=== PATIENT | female | born 1950 | race Caucasian/White ===

== ENCOUNTER 2024-11-20 17:20 | Inpatient (IN) | payer MEDICARE, OTHER ==
[~2024-11-20] VITALS: Ht 160 cm; Wt 53.6 kg
[2024-11-20 19:28] LABS: BASOPHILS % (AUTO) 0.3 % (0.0-2.0); EOSINOPHILS % (AUTO) 2.5 % (1.0-6.0); HEMATOCRIT 41.4 % (36-46); HEMOGLOBIN 13.8 g/dL (12.0-16.0); LYMPHOCYTES # (AUTO) 3.2 K/uL (1.0-4.8); LYMPHOCYTES % (AUTO) 34.6 % (22.0-44.0); MEAN CORPUSCULAR HEMOGLOBIN 29.8 pg (26.0-34.0); MEAN CORPUSCULAR HGB CONC 33.2 G/dL (31.0-37.0); MEAN CORPUSCULAR VOLUME 90 fL (80-100); MONOCYTES # (AUTO) 0.6 K/uL (0.1-1.0); MONOCYTES % (AUTO) 6.4 % (2.0-9.0); NEUTROPHILS # (AUTO) 5.2 K/uL (1.8-7.7); NEUTROPHILS % (AUTO) 56.2 % (40.0-70.0); PLATELET COUNT (AUTO) 288 K/uL (150-450); RED BLOOD CELL COUNT(AUTO) 4.62 MIL/uL (4.00-5.20); WHITE BLOOD COUNT (AUTO) 9.2 K/uL (4.5-11.0)
[2024-11-20 19:29] LABS: ANION GAP 8 mmol/L (8-16); CALCIUM, TOTAL 8.8 mg/dL (8.8-10.5); CARBON DIOXIDE 29 mmol/L (22-29); CHLORIDE 108 mmol/L (98-107); GLOMERULAR FILTR. RATE CALC > 60 mL/min (>60); GLUCOSE,RANDOM 111 mg/dL (70-110); POTASSIUM 4.3 mmol/L (3.5-5.1); SODIUM SERUM 145 mmol/L (136-145); UREA NITROGEN, BLOOD 20 mg/dL (7-18)
[2024-11-20 19:38] LABS: ALCOHOL, BLOOD (SERUM) < 3 mg/dL (0-10)
[2024-11-20] MEDS: LORazepam 2 MG/ML VIAL IM ONE (19:44)
[2024-11-20] MEDS: ZIPRASIDONE MESYLATE 20 MG/VIAL IM ONE (19:44)
[2024-11-20 20:03] LABS: COVID AG,FIA SOURCE NASAL SWAB
[2024-11-20 20:24] LABS: SARS-COV2 (COVID) ANTIGEN,FIA Negative (Negative)
[2024-11-20] MEDS ORDERED: GABA-1181 PO (20:27)
[2024-11-20] MEDS ORDERED: HYDR-4062 PO (20:27)
[2024-11-20] MEDS ORDERED: BUSP15 PO (20:27)
[2024-11-20] MEDS ORDERED: CELE200 PO (20:27)
[2024-11-20] MEDS ORDERED: ASPI-1450 PO (20:27)
[2024-11-20] MEDS ORDERED: ATOR10TA PO (20:27)
[2024-11-20] MEDS ORDERED: MELA5TAB21 PO (20:27)
[2024-11-20] MEDS ORDERED: FENO50CA4 PO (20:27)
[2024-11-20] MEDS ORDERED: ONDA-104 PO (20:27)
[2024-11-20] MEDS ORDERED: AMLO-257 PO (20:27)
[2024-11-20] MEDS ORDERED: TUBE5VIA ID (20:27)
[2024-11-20] MEDS ORDERED: LEVO50TA11 PO (20:27)
[2024-11-20] MEDS ORDERED: MIRT-93 PO (20:27)
[2024-11-20] MEDS ORDERED: ACET-2247 PO (20:27)
[2024-11-20] MEDS ORDERED: CLOP75TA60 PO (20:27)
[2024-11-20] MEDS ORDERED: INSLAN SQ ×2 (20:27)
[2024-11-20 21:16] LABS: APPEARANCE,URINE CLEAR (CLEAR); BILIRUBIN,URINE NEGATIVE (NEGATIVE); COLOR,URINE LIGHT YELLOW (YELLOW); GLUCOSE, URINE (UA) NEGATIVE (NEGATIVE); KETONES,URINE NEGATIVE (NEGATIVE); LEUKOCYTE ESTERASE ,URINE SMALL (NEGATIVE); NITRATE,URINE POSITIVE (NEGATIVE); OCCULT BLOOD,URINE NEGATIVE (NEGATIVE); PROTEIN,URINE NEGATIVE (NEGATIVE); SPECIFIC GRAVITIY, URINE 1.015 (1.003-1.030); UROBILINOGEN,URINE <=1.0 mg/dL (<=1.0)
[2024-11-20 21:24] LABS: ALCOHOL, URINE DRUG SCREEN NEGATIVE (NEGATIVE); AMPHET/METH SCREEN,URINE NEGATIVE (NEGATIVE); BARBITURATE SCREEN, URINE NEGATIVE (NEGATIVE); BENZODIAZEPINES SCREEN,URINE NEGATIVE (NEGATIVE); CANNABINOID SCREEN,URINE NEGATIVE (NEGATIVE); COCAINE SCREEN,URINE NEGATIVE (NEGATIVE); METHADONE SCREEN, URINE NEGATIVE (NEGATIVE); OPIATE SCREEN,URINE NEGATIVE (NEGATIVE); PHENCYCLIDINE SCREEN,URINE NEGATIVE (NEGATIVE)
[2024-11-20 21:37] LABS: BACTERIA,URINE Many /HPF (None Seen); RBC,URINE 0-2 /HPF (0-2); SQUAMOUS EPITHELIAL CELL,UR Few /LPF (None Seen)
[2024-11-21] MEDS: LORazepam 2 MG TABLET PO PRN (07:54)
[2024-11-21] MEDS: ZOLPIDEM TARTRATE 10 MG TABLET PO PRN (18:36)
[2024-11-21] MEDS: CefTRIAXone SODIUM 1 GM/VIAL IM ONE (22:45)
[2024-11-21] MEDS: LIDOCAINE/PF 1% 2 ML VIAL IM ONE (22:45)
[2024-11-22 08:26] LABS: GLUCOMETER DEV NAME(LOC) ER.7; GLUCOSE,POINT OF CARE 105 MG/DL (70-110)
[2024-11-22] MEDS: OLANZapine 5 MG RAPDIS TABLET PO PRN (08:36)
[2024-11-23] MEDS ORDERED: FENO67CA16 PO (13:54)
[2024-11-23] MEDS ORDERED: INSU100V42 SQ (13:54)
[2024-11-23] MEDS ORDERED: ALEN10TA27 PO (13:54)
[2024-11-23] MEDS ORDERED: INSU100V51 SQ (13:54)
[2024-11-23] MEDS: CefTRIAXone SODIUM 1 GM/VIAL IM ONE (14:24)
[2024-11-23] MEDS: LIDOCAINE/PF 1% 2 ML VIAL IM ONE (14:25)
[2024-11-23 14:32] VITALS: O2SAT 96
[2024-11-23 15:22] VITALS: BP 128/62; PULSE 99; RESP 18; TEMP 96.9; O2SAT 97
[2024-11-23] MEDS ORDERED: DEXTROSE 50%-WATER 25 GM/50 ML SYRINGE IVP PRN (16:30)
[2024-11-23] MEDS: CEPHALEXIN MONOHYDRATE 250 MG CAPSULE PO SCH (17:08)
[2024-11-23] MEDS: BusPIRone HCL 15 MG TABLET PO SCH (17:08)
[2024-11-23] MEDS: INSULIN LISPRO 100 UNITS/ML SQ PRN (18:18)
[2024-11-23 20:56] LABS: GLUCOMETER DEV NAME(LOC) 3E.C; GLUCOSE,POINT OF CARE 115 MG/DL (70-110)
[2024-11-23] MEDS: MELATONIN 5 MG TABLET PO SCH (21:21)
[2024-11-23] MEDS: MIRTAZAPINE 30 MG TABLET PO SCH (21:21)
[2024-11-23 22:06] VITALS: BP 108/54; PULSE 78; RESP 17; TEMP 98.2; O2SAT 94
[2024-11-24 06:56] LABS: GLUCOMETER DEV NAME(LOC) 3E.C; GLUCOSE,POINT OF CARE 93 MG/DL (70-110)
[2024-11-24] MEDS: ALENDRONATE SODIUM 10 MG TABLET PO SCH (07:03)
[2024-11-24] MEDS: LEVOTHYROXINE SODIUM 50 MCG TABLET PO SCH (07:03)
[2024-11-24] MEDS: CLOPIDOGREL BISULFATE 75 MG TABLET PO SCH (09:25)
[2024-11-24] MEDS: AmLODIPine BESYLATE 5 MG TABLET PO SCH (09:25)
[2024-11-24] MEDS: ASPIRIN 81 MG CHEWABLE TABLET PO SCH (09:26)
[2024-11-24] MEDS: FENOFIBRATE,MICRONIZED 67 MG CAPSULE PO SCH (09:26)
[2024-11-24 09:29] VITALS: BP 101/50; PULSE 98; RESP 18; TEMP 98; O2SAT 97
[2024-11-24] MEDS: INSULIN GLARGINE,HUM.REC.ANLOG 100 UNITS/ML SQ SCH (09:53)
[2024-11-24 11:46] LABS: GLUCOMETER DEV NAME(LOC) 3E.C; GLUCOSE,POINT OF CARE 135 MG/DL (70-110)
[2024-11-24 17:15] LABS: GLUCOMETER DEV NAME(LOC) 3E.C; GLUCOSE,POINT OF CARE 246 MG/DL (70-110)
[2024-11-24 20:10] VITALS: BP 105/62; PULSE 74; RESP 18; TEMP 98.1; O2SAT 98
[2024-11-24 20:56] LABS: GLUCOMETER DEV NAME(LOC) 3E.C; GLUCOSE,POINT OF CARE 145 MG/DL (70-110)
[2024-11-25 06:31] LABS: GLUCOMETER DEV NAME(LOC) 3E.C; GLUCOSE,POINT OF CARE 93 MG/DL (70-110)
[2024-11-25] MEDS ORDERED: LOPERAMIDE HCL 2 MG CAPSULE PO PRN (09:00)
[2024-11-25] MEDS ORDERED: CloNIDine HCL 0.1 MG TABLET PO PRN (09:00)
[2024-11-25] MEDS ORDERED: DOCUSATE SODIUM 100 MG CAPSULE PO PRN (09:00)
[2024-11-25] MEDS ORDERED: GuaiFENesin/D-METHORPHAN [SUGAR-FREE] 200-20MG/10 ML SYRUP UDCUP PO PRN (09:00)
[2024-11-25] MEDS ORDERED: MAGNESIUM HYDROXIDE SUSPENSION 30 ML UDCUP PO PRN (09:00)
[2024-11-25] MEDS ORDERED: NICOTINE 14 MG/24 HOUR PATCH TD PRN (09:00)
[2024-11-25] MEDS ORDERED: IBUPROFEN 400 MG TABLET PO PRN (09:00)
[2024-11-25] MEDS ORDERED: ACETAMINOPHEN 325 MG TABLET PO PRN (09:00)
[2024-11-25] MEDS ORDERED: ONDANSETRON 4 MG TABLET PO PRN (09:00)
[2024-11-25] MEDS ORDERED: MAG HYDROX/ALUMINUM HYD/SIMETH ES 30 ML SUSPENSION UDCUP PO PRN (09:00)
[2024-11-25] MEDS ORDERED: ALBUTEROL SULFATE HFA 90 MCG/PUFF 8 GM INHALER IH PRN (09:00)
[2024-11-25] MEDS ORDERED: PETROLATUM,WHITE 28 GM JELLY TP PRN (09:00)
[2024-11-25 11:40] LABS: GLUCOMETER DEV NAME(LOC) 3E.C; GLUCOSE,POINT OF CARE 99 MG/DL (70-110)
[2024-11-25] MEDS ORDERED: MELA5TAB40 PO (15:11)
[2024-11-25] MEDS ORDERED: CEPH-556 PO (15:11)
[2024-11-25 16:11] VITALS: BP 126/62; PULSE 86; RESP 17; TEMP 98.9; O2SAT 95
[2024-11-25 17:46] LABS: GLUCOMETER DEV NAME(LOC) 3E.C; GLUCOSE,POINT OF CARE 192 MG/DL (70-110)
== END 2024-11-25 18:47 | DRG 885 ==
LOC: EMS 17:24 → 3EI 11-23 10:34
PROVIDERS: ADMIT Psychiatry & Neurology Child & Adolescent Psychiatry; ATTEND Psychiatry & Neurology Child & Adolescent Psychiatry
PROC: GZ56ZZZ Individual Psychotherapy, Supportive (ICD-10-PCS; principal; 2024-11-24)
DX: F20.9 Schizophrenia, unspecified (principal); N39.0 Urinary tract infection, site not specified; F01.53 Vascular dementia, unspecified severity, with mood disturbance; G81.94 Hemiplegia, unspecified affecting left nondominant side; E11.9 Type 2 diabetes mellitus without complications; I10 Essential (primary) hypertension; M81.0 Age-related osteoporosis without current pathological fracture; Z20.822 Contact with and (suspected) exposure to COVID-19; E03.9 Hypothyroidism, unspecified; E78.00 Pure hypercholesterolemia, unspecified; J44.89 Other specified chronic obstructive pulmonary disease; Z78.1 Physical restraint status; Z79.4 Long term (current) use of insulin; Z86.73 Personal history of transient ischemic attack (TIA), and cerebral infarction without residual deficits; F32.9 Major depressive disorder, single episode, unspecified
CPT/HCPCS: 80048; 80307; 81001; 82962; 85025; 87077; 87081; 87086; 87186; 96372; 99291; G0480; J0696; J1815; J2060; J3486; J3490

== ENCOUNTER 2024-12-06 14:13 | Inpatient (IN) | payer MEDICARE, OTHER ==
[~2024-12-06] VITALS: Ht 147.3 cm; Wt 63.6 kg
[~2024-12-06 14:13] MED LIST: ALEN10TA27 PO; AMLO-257 PO; ASPI-1450 PO; BUSP15 PO; CELE200 PO; CEPH-556 PO; CLOP75TA60 PO; FENO67CA16 PO; INSLAN SQ; LEVO50TA11 PO; MELA5TAB40 PO; MIRT-93 PO
[2024-12-06] MEDS ORDERED: ZOLPIDEM TARTRATE 10 MG TABLET PO PRN (15:15)
[2024-12-06] MEDS ORDERED: LORazepam 2 MG TABLET PO PRN (15:15)
[2024-12-06] MEDS: DiphenhydrAMINE HCL 50 MG/ML VIAL IM ONE (15:26)
[2024-12-06] MEDS: ZIPRASIDONE MESYLATE 20 MG/VIAL IM ONE (15:26)
[2024-12-06] MEDS: LORazepam 2 MG/ML VIAL IM ONE (15:26)
[2024-12-06] MEDS ORDERED: ZOLPIDEM TARTRATE 5 MG TABLET PO PRN (15:26)
[2024-12-06 17:33] LABS: COVID AG,FIA SOURCE NASAL SWAB
[2024-12-06 17:56] LABS: SARS-COV2 (COVID) ANTIGEN,FIA Negative (Negative)
[2024-12-06 18:13] LABS: BASOPHILS % (AUTO) 0.2 % (0.0-2.0); EOSINOPHILS % (AUTO) 0.5 % (1.0-6.0); HEMATOCRIT 37.2 % (36-46); HEMOGLOBIN 12.3 g/dL (12.0-16.0); LYMPHOCYTES # (AUTO) 2.2 K/uL (1.0-4.8); MEAN CORPUSCULAR HEMOGLOBIN 29.5 pg (26.0-34.0); MEAN CORPUSCULAR VOLUME 89 fL (80-100); MONOCYTES # (AUTO) 0.9 K/uL (0.1-1.0); MONOCYTES % (AUTO) 4.7 % (2.0-9.0); NEUTROPHILS # (AUTO) 16.7 K/uL (1.8-7.7); NEUTROPHILS % (AUTO) 83.6 % (40.0-70.0); PLATELET COUNT (AUTO) 307 K/uL (150-450); RED BLOOD CELL COUNT(AUTO) 4.16 MIL/uL (4.00-5.20); WHITE BLOOD COUNT (AUTO) 19.9 K/uL (4.5-11.0)
[2024-12-06 18:21] LABS: ANION GAP 7 mmol/L (8-16); CALCIUM, TOTAL 8.4 mg/dL (8.8-10.5); CARBON DIOXIDE 27 mmol/L (22-29); CHLORIDE 111 mmol/L (98-107); GLOMERULAR FILTR. RATE CALC > 60 mL/min (>60); GLUCOSE,RANDOM 77 mg/dL (70-110); POTASSIUM 3.1 mmol/L (3.5-5.1); SODIUM SERUM 145 mmol/L (136-145); UREA NITROGEN, BLOOD 30 mg/dL (7-18)
[2024-12-06 18:27] LABS: ALBUMIN 2.8 g/dL (3.4-5.0); BILIRUBIN,DIRECT 0.2 mg/dL (0.00-0.20); BILIRUBIN,TOTAL 0.5 mg/dL (0.1-1.0); TOTAL PROTEIN, SERUM 6.1 g/dL (6.4-8.2)
[2024-12-06 18:54] LABS: ALCOHOL, BLOOD (SERUM) < 3 mg/dL (0-10)
[2024-12-06 19:33] LABS: APPEARANCE,URINE CLEAR (CLEAR); BILIRUBIN,URINE NEGATIVE (NEGATIVE); COLOR,URINE YELLOW (YELLOW); GLUCOSE, URINE (UA) NEGATIVE (NEGATIVE); KETONES,URINE NEGATIVE (NEGATIVE); LEUKOCYTE ESTERASE ,URINE LARGE (NEGATIVE); NITRATE,URINE POSITIVE (NEGATIVE); OCCULT BLOOD,URINE NEGATIVE (NEGATIVE); PH,URINE 5.5 (5.0-8.0); PH,URINE DRUG SCREEN 5.5 (5.0-8.0); PROTEIN,URINE TRACE mg/dL (NEGATIVE); SPECIFIC GRAVITIY, URINE 1.023 (1.003-1.030); UROBILINOGEN,URINE <=1.0 mg/dL (<=1.0)
[2024-12-06] MEDS: POTASSIUM CHLORIDE 20 MEQ ER TABLET PO ONE (19:39)
[2024-12-06 19:40] LABS: ALCOHOL, URINE DRUG SCREEN NEGATIVE (NEGATIVE); AMPHET/METH SCREEN,URINE NEGATIVE (NEGATIVE); BARBITURATE SCREEN, URINE NEGATIVE (NEGATIVE); BENZODIAZEPINES SCREEN,URINE NEGATIVE (NEGATIVE); CANNABINOID SCREEN,URINE NEGATIVE (NEGATIVE); COCAINE SCREEN,URINE NEGATIVE (NEGATIVE); METHADONE SCREEN, URINE NEGATIVE (NEGATIVE); OPIATE SCREEN,URINE NEGATIVE (NEGATIVE); PHENCYCLIDINE SCREEN,URINE NEGATIVE (NEGATIVE)
[2024-12-06 19:43] LABS: BACTERIA,URINE Moderate /HPF (None Seen); RBC,URINE 0-2 /HPF (0-2); SQUAMOUS EPITHELIAL CELL,UR Few /LPF (None Seen)
[2024-12-06] MEDS: LIDOCAINE/PF 1% 2 ML VIAL IM ONE (21:54)
[2024-12-06] MEDS: CefTRIAXone SODIUM 1 GM/VIAL IM ONE (21:54)
[2024-12-07] MEDS: LORazepam 2 MG/ML VIAL IM ONE (06:33)
[2024-12-07 06:58] LABS: HEMOGLOBIN A1C 6.3 % (3.8-5.6)
[2024-12-07 07:06] LABS: CHOL/HDL RATIO 1.9 (3.9-5.7)
[2024-12-07] MEDS: LORazepam 1 MG TABLET PO PRN (09:11)
[2024-12-07 16:06] LABS: BASOPHILS % (AUTO) 0.3 % (0.0-2.0); EOSINOPHILS % (AUTO) 1.8 % (1.0-6.0); HEMOGLOBIN 13.5 g/dL (12.0-16.0); LYMPHOCYTES # (AUTO) 1.9 K/uL (1.0-4.8); MEAN CORPUSCULAR HEMOGLOBIN 29.8 pg (26.0-34.0); MEAN CORPUSCULAR VOLUME 90 fL (80-100); MONOCYTES # (AUTO) 0.7 K/uL (0.1-1.0); MONOCYTES % (AUTO) 5.1 % (2.0-9.0); NEUTROPHILS # (AUTO) 10.8 K/uL (1.8-7.7); NEUTROPHILS % (AUTO) 78.8 % (40.0-70.0); PLATELET COUNT (AUTO) 329 K/uL (150-450); RED BLOOD CELL COUNT(AUTO) 4.55 MIL/uL (4.00-5.20); WHITE BLOOD COUNT (AUTO) 13.6 K/uL (4.5-11.0)
[2024-12-07] MEDS: QUEtiapine FUMARATE 100 MG TABLET PO PRN (16:06)
[2024-12-07 16:14] LABS: ANION GAP 7 mmol/L (8-16); CALCIUM, TOTAL 8.8 mg/dL (8.8-10.5); CARBON DIOXIDE 28 mmol/L (22-29); CHLORIDE 111 mmol/L (98-107); CREATININE 0.67 mg/dL (0.60-1.30); GLOMERULAR FILTR. RATE CALC > 60 mL/min (>60); GLUCOSE,RANDOM 78 mg/dL (70-110); POTASSIUM 4.1 mmol/L (3.5-5.1); SODIUM SERUM 146 mmol/L (136-145); UREA NITROGEN, BLOOD 24 mg/dL (7-18)
[2024-12-08] MEDS: LIDOCAINE/PF 1% 2 ML VIAL IM ONE (04:09)
[2024-12-08] MEDS: CefTRIAXone SODIUM 1 GM/VIAL IM ONE (04:09)
[2024-12-08] MEDS: BusPIRone HCL 15 MG TABLET PO ONE (08:17)
[2024-12-08] MEDS: MIRTAZAPINE 30 MG TABLET PO ONE (08:17)
[2024-12-08] MEDS: CLOPIDOGREL BISULFATE 75 MG TABLET PO ONE (08:18)
[2024-12-08] MEDS: GABAPENTIN 300 MG CAPSULE PO ONE (08:18)
[2024-12-08] MEDS: ASPIRIN 81 MG CHEWABLE TABLET PO ONE (08:18)
[2024-12-08 09:26] LABS: GLUCOMETER DEV NAME(LOC) ER.7; GLUCOSE,POINT OF CARE 80 MG/DL (70-110)
[2024-12-08] MEDS: DEXTROSE 5%-WATER 500 ML IV ONE (16:45)
[2024-12-08 19:22] VITALS: BP 133/61; PULSE 87; RESP 20; TEMP 97.9; O2SAT 97
[2024-12-08] MEDS ORDERED: MIRTAZAPINE 30 MG TABLET PO ONE (21:00)
[2024-12-08] MEDS: MIRTAZAPINE 30 MG TABLET PO SCH (21:00)
[2024-12-08] MEDS: MELATONIN 5 MG TABLET PO SCH (21:00)
[2024-12-08] MEDS: BusPIRone HCL 15 MG TABLET PO SCH (21:00)
[2024-12-09 05:30] VITALS: BP 122/60; PULSE 82; RESP 18; TEMP 98.3; O2SAT 97
[2024-12-09] MEDS: LEVOTHYROXINE SODIUM 50 MCG TABLET PO SCH (06:14)
[2024-12-09] MEDS: ASPIRIN 81 MG CHEWABLE TABLET PO SCH (09:00)
[2024-12-09] MEDS: INSULIN GLARGINE,HUM.REC.ANLOG 100 UNITS/ML SQ SCH (09:00)
[2024-12-09] MEDS: AmLODIPine BESYLATE 5 MG TABLET PO SCH (09:00)
[2024-12-09] MEDS: CLOPIDOGREL BISULFATE 75 MG TABLET PO SCH (09:00)
[2024-12-09] MEDS: FENOFIBRATE,MICRONIZED 67 MG CAPSULE PO SCH (09:00)
[2024-12-10 05:25] VITALS: BP 142/71; PULSE 83; RESP 20; TEMP 98.1; O2SAT 97
[2024-12-10 06:55] LABS: BASOPHILS % (AUTO) 0.2 % (0.0-2.0); EOSINOPHILS % (AUTO) 3.2 % (1.0-6.0); HEMATOCRIT 40.9 % (36-46); HEMOGLOBIN 13.8 g/dL (12.0-16.0); LYMPHOCYTES # (AUTO) 2.6 K/uL (1.0-4.8); LYMPHOCYTES % (AUTO) 38.6 % (22.0-44.0); MEAN CORPUSCULAR HEMOGLOBIN 30.1 pg (26.0-34.0); MEAN CORPUSCULAR HGB CONC 33.8 G/dL (31.0-37.0); MEAN CORPUSCULAR VOLUME 89 fL (80-100); MONOCYTES # (AUTO) 0.5 K/uL (0.1-1.0); MONOCYTES % (AUTO) 7.4 % (2.0-9.0); NEUTROPHILS # (AUTO) 3.4 K/uL (1.8-7.7); NEUTROPHILS % (AUTO) 50.6 % (40.0-70.0); PLATELET COUNT (AUTO) 371 K/uL (150-450); RED BLOOD CELL COUNT(AUTO) 4.59 MIL/uL (4.00-5.20); RED CELL DISTRIBUTION WIDTH 14.4 % (11.5-14.5); WHITE BLOOD COUNT (AUTO) 6.7 K/uL (4.5-11.0)
[2024-12-10 07:05] LABS: ANION GAP 5 mmol/L (8-16); CARBON DIOXIDE 29 mmol/L (22-29); CHLORIDE 111 mmol/L (98-107); GLOMERULAR FILTR. RATE CALC > 60 mL/min (>60); GLUCOSE,RANDOM 113 mg/dL (70-110); SODIUM SERUM 145 mmol/L (136-145); UREA NITROGEN, BLOOD 14 mg/dL (7-18)
[2024-12-10 07:48] VITALS: BP 153/71; PULSE 90; RESP 20; TEMP 98.7; O2SAT 95
[2024-12-10 07:49] VITALS: BP 153/71; PULSE 84; RESP 18; TEMP 98.3; O2SAT 95
[2024-12-10] MEDS: ETHYL ALCOHOL 62% ANTISEPTIC NASAL SANITIZER 0.6 ML AMPUL NASAL SCH (08:35)
[2024-12-11] MEDS: SULFAMETHOX/TRIMETH DS 800-160 MG/TABLET PO SCH (13:00)
[2024-12-12 07:16] VITALS: BP 120/55; PULSE 94; RESP 18; TEMP 98; O2SAT 95
[2024-12-12 15:16] VITALS: BP 114/66; PULSE 104; RESP 18; TEMP 96.9; O2SAT 98
[2024-12-13] MEDS ORDERED: ETHY1MED2 NASAL (14:03)
[2024-12-13] MEDS ORDERED: SULF-261 PO (14:03)
[2024-12-13] MEDS ORDERED: QUET100T PO (14:07)
[2024-12-13 19:30] VITALS: BP 139/74; PULSE 84; RESP 20; TEMP 98.6; O2SAT 97
== END 2024-12-13 21:09 | DRG 640 ==
LOC: EMS 14:14 → EDBEDREQSVC 12-08 12:12 → EDBEDREQ 12-08 12:12 → EDH 12-08 12:13 → 4E 12-08 17:17
PROVIDERS: ADMIT Internal Medicine; ATTEND Internal Medicine
PROC: GZ56ZZZ Individual Psychotherapy, Supportive (ICD-10-PCS; principal; 2024-12-09)
PROC: GZ58ZZZ Individual Psychotherapy, Cognitive-Behavioral (ICD-10-PCS; 2024-12-09)
DX: E87.0 Hyperosmolality and hypernatremia (principal); G93.41 Metabolic encephalopathy; F03.93 Unspecified dementia, unspecified severity, with mood disturbance; F03.911 Unspecified dementia, unspecified severity, with agitation; F33.9 Major depressive disorder, recurrent, unspecified; F01.518 Vascular dementia, unspecified severity, with other behavioral disturbance; F20.0 Paranoid schizophrenia; N39.0 Urinary tract infection, site not specified; N17.9 Acute kidney failure, unspecified; N12 Tubulo-interstitial nephritis, not specified as acute or chronic; Z20.822 Contact with and (suspected) exposure to COVID-19; I10 Essential (primary) hypertension; E11.9 Type 2 diabetes mellitus without complications; J44.89 Other specified chronic obstructive pulmonary disease; E03.9 Hypothyroidism, unspecified; M81.0 Age-related osteoporosis without current pathological fracture; E78.00 Pure hypercholesterolemia, unspecified; E87.6 Hypokalemia; Z91.148 Patient's other noncompliance with medication regimen for other reason; Z79.899 Other long term (current) drug therapy; Z88.8 Allergy status to other drugs, medicaments and biological substances
CPT/HCPCS: 80048; 80061; 80076; 80307; 81001; 82962; 83036; 83605; 85025; 87077; 87081; 87086; 87186; 96372; 99291; G0378; G0480; J0696; J1200; J1815; J2060; J3486; J3490